=== PATIENT | male | born 1945 | race Caucasian/White ===

== ENCOUNTER 2021-07-16 12:19 | Emergency (ER) | payer MEDICARE ==
[2021-07-16] MEDS ORDERED: ALBUTEROL HFA INHALER INHALATION STA (12:58)
[2021-07-16] MEDS ORDERED: DEXAMETHASONE SOD PHOSPHATE 10 MG/ML 1 ML VIAL IM STA (12:58)
--- NOTE | 2021-07-16 13:05 | ED ---
URI HPI - General Chief Complaint: Upper Respiratory Infection Stated Complaint: Covid+, SOB Time Seen by Provider: 07/16/21 12:36 Source: patient, family, RN notes reviewed Mode of arrival: ambulatory Limitations: no limitations - History of Present Illness Initial Comments: Patient is a 75-year-old male that presents to the emergency Department Covid- positive recently receiving were general on on 07/13/2021. He notes that he still having muscle aches. Patient was informed that were general does not take symptoms away and he is most likely just experiencing continuation of symptoms. Patient was otherwise well-appearing in no apparent distress or pain. He denied any chest pain short of breath headache nausea vomiting diarrhea constipation fe marc fatigue chills. - Related Data Previous Rx's Medication Instructions Recorded Albuterol Sulfate [Albuterol 2 puff PO Q6H #8.5 gm 07/16/21 Sulfate Hfa] predniSONE 50 mg PO DAILY #5 tab 07/16/21 Allergies Allergy/AdvReac Type Severity Reaction Status Date / Time No Known Allergies Allergy Verified 07/16/21 12:33 Review of Systems ROS Statement: Those systems with pertinent positive or pertinent negative responses have been documented in the HPI. ROS Other: All systems not noted in ROS Statement are negative. Past Medical History Additional Past Medical History / Comment(s): parkinson's History of Any Multi-Drug Resistant Organisms: None Reported Past Surgical History: Orthopedic Surgery Additional Past Surgical History / Comment(s): hip surgery Past Psychological History: No Psychological Hx Reported Smoking Status: Never smoker Past Alcohol Use History: None Reported Past Drug Use History: None Reported General Exam Limitations: no limitations General appearance: alert, in no apparent distress, obese Head exam: Present: atraumatic, normocephalic, normal inspection Eye exam: Present: normal appearance, PERRL, EOMI. Absent: scleral icterus, conjunctival injection, periorbital swelling ENT exam: Present: normal exam, mucous membranes moist Neck exam: Present: normal inspection Respiratory exam: Present: normal lung sounds bilaterally. Absent: respiratory distress, wheezes, rales, rhonchi, stridor Cardiovascular Exam: Present: regular rate, normal rhythm, normal heart sounds. Absent: systolic murmur, diastolic murmur, rubs, gallop, clicks Extremities exam: Present: normal inspection, full ROM, normal capillary refill. Absent: tenderness, pedal edema, joint swelling, calf tenderness Neurological exam: Present: alert, oriented X3 Psychiatric exam: Present: normal affect, normal mood Skin exam: Present: warm, dry, intact, normal color. Absent: rash Course Vital Signs 07/16/21 12:28 Temperature 97.5 F L Pulse Rate 79 Respiratory 18 Rate Blood Pressure 143/83 O2 Sat by Pulse 95 Oximetry Medical Decision Making - Medical Decision Making 75-year-old male Covid-positive are he received regeneron. 10 mg of Decadron, 2 puffs of an inhaler ordered. Patient was informed that the monoclonal antibody does not take symptoms away and just reduces severity. Patient was informed that his muscle aches are probably a continuation of his Covid symptoms. Patient is agreeable with discharge home. Case discussed with Dr. Panchal Disposition Clinical Impression: COVID Disposition: HOME SELF-CARE Condition: Stable Instructions (If sedation given, give patient instructions): Coronavirus Disease 2019 (COVID-19) Additional Instructions: Please return to the Emergency Department if symptoms worsen or any other concerns. Follow-up with primary care in 1-2 days. Takes steroid and inhaler as prescribed. Is patient prescribed a controlled substance at d/c from ED?: No Referrals: Errol Hu MD [Primary Care Provider] - 1-2 days Time of Disposition: 13:05
[2021-07-16 14:08] VITALS: BP 131/72; PULSE 77; RESP 18; TEMP 98
== END 2021-07-16 14:40 | disposition home or self-care (01) ==
LOC: EC 12:19
DX: U07.1 COVID-19 (principal); E66.9 Obesity, unspecified; Z68.36 Body mass index [BMI] 36.0-36.9, adult
CPT/HCPCS: 94640; 96372; 99283; J1100

== ENCOUNTER → 2024-09-12 | Outpatient (CLI) | payer MEDICARE | END | disposition home or self-care (01) | LOC: LABPAT 14:15 | PROVIDERS: ATTEND Orthopaedic Surgery | DX: Z22.322 Carrier or suspected carrier of Methicillin resistant Staphylococcus aureus (principal) | CPT/HCPCS: 87070; 93005 ==

== ENCOUNTER 2024-09-16 05:37 | Day surgery (SDC) | payer MEDICARE ==
[~2024-09-16 05:37] MED LIST: TRANEXAMIC 1,000 MG/100ML-NACL 1,000 MG in SALINE 1 100ML.BAG IVPB PRN
[2024-09-16] MEDS: ACETAMINOPHEN TAB 500 MG TAB PO PRN (06:24)
[2024-09-16] MEDS: MELOXICAM 7.5 MG TAB PO PRN (06:24)
[2024-09-16] MEDS: GABAPENTIN 300 MG CAP PO PRN (06:25)
[2024-09-16] MEDS: MIDAZOLAM 2 MG/2 ML VIAL IV ONE (06:30)
[2024-09-16] MEDS: DEXAMETHASONE SOD PHOSPHATE 4 MG/ML 1 ML VIAL IVP STA (06:44)
[2024-09-16] MEDS: ONDANSETRON 4 MG/2 ML VIAL IVP STA (06:44)
[2024-09-16] MEDS: LACTATED RINGERS 1,000 ML IV SCH (06:46)
[2024-09-16 06:55] LABS: Glucose,Whole Blood 105 mg/dL (70-110)
[2024-09-16] MEDS: ceFAZolin 1,000 MG in SODIUM CHLORIDE 0.9% 1,000 ML IRRIGATION ONE (06:56)
[2024-09-16] MEDS ORDERED: ROPIVACAINE 5 MG/ML 30 ML VIAL ONE (06:56)
[2024-09-16] MEDS ORDERED: fentaNYL (PF) 50 MCG/ML 2 ML AMP ONE (06:56)
[2024-09-16] MEDS ORDERED: MIDAZOLAM 2 MG/2 ML VIAL ONE (06:56)
[2024-09-16] MEDS ORDERED: DEXAMETHASONE SOD PHOSPHATE 4 MG/ML 1 ML VIAL ONE (06:56)
[2024-09-16] MEDS ORDERED: TRANEXAMIC 1,000 MG/100ML-NACL PREMIX BAG ONE (06:56)
[2024-09-16] MEDS ORDERED: PROPOFOL 10 MG/ML 20 ML VIAL IV ONE (06:56)
[2024-09-16] MEDS: IV FLUID CONTINUATION 1,000 ML IV ONE ×2 (06:57→08:31)
[2024-09-16] MEDS ORDERED: HYDROmorphone 0.5 MG/0.5 ML SYRINGE IVP PRN ×4 (07:00→08:38)
--- NOTE | 2024-09-16 08:01 | P.OP ---
Date of Procedure: 09/16/24 Preoperative Diagnosis: Severe osteoarthritis left knee Postoperative Diagnosis: Severe osteoarthritis left knee Procedure(s) Performed: Left total knee arthroplasty Implants: [employer] II CR Oxinium cruciate retaining femoral component size 7, left [employer] nonporous tibial baseplate size 6, left [employer] II, XLPE Deep Dished articular insert, size 11 mm, Size 5-6, left [employer] Priscilla II resurfacing patellar component, oval, 35 mm All components were cemented using Palacos R bone cement The articulation is Oxinium on polyethylene Anesthesia: spinal Surgeon: Jayden Berry Electrical Design Technician #1: Shira Gupta Estimated Blood Loss (ml): 30 Pathology: none sent Condition: stable Disposition: PACU Indications for Procedure: The patient's knee is end-stage, and conservative management has failed. The operation of knee replacement has been discussed at length in the office, as well as potential risks and complications. These are inclusive of, but not limited to: Infection, bleeding, scarring, discomfort, stiffness, blood vessel and nerve damage, need for further surgery, failure to relieve symptoms, persistence, recurrence, or worsening of problems, loosening, dislocation, wear, blood clot, pulmonary embolism, , gait dysfunction, stiffness, and other risks as discussed in the office. Patient elects to proceed and the consent form has been signed. Operative Findings: The operative findings are consistent with severe osteoarthritis of the left knee Description of Procedure: The patient was seen in the preoperative area, the consent was reviewed and the operative site was marked with a skin marker. The patient verified the procedure and the operative site. An adductor canal pain catheter and an iPACK block were placed by anesthesia in the preoperative area. The patient was then brought to the operating room and positioned on the operating room table in the supine position. Preoperative antibiotics and a gram of tranexamic acid were given intravenously. A spinal anesthetic was administered by the anesthesia department. Care was taken to make sure that all pressure points were adequately padded. A tourniquet was placed on the upper thigh and the lower extremity was prepped with ChloraPrep and draped in usual sterile fashion. A universal time-out was then performed which confirmed the patient's name, surgical site, ALLERGIES, and consent. The lower extremity was then exsanguinated and tourniquet was inflated to 250 mmHg. A standard anterior midline approach to the knee was performed. The skin and subcutaneous tissue were sharply dissected down to the patellar tendon. A medial parapatellar arthrotomy was then performed. The knee was then extended, the patellar was everted, and the knee was flexed. The infra-patellar fat pad was removed in order to enhance exposure. The anterior horns of both menisci were excised, and a release was performed to the posterior medial aspect of the knee. On gross visual inspection, there was complete loss of articular cartilage in the medial and patellofemoral joint spaces. There was also significant cartilage damage in the lateral compartment. There were multiple periarticular osteophytes globally about the knee which were then removed with a Ronguer. The femoral canal was then opened with the 9.5 mm intramedullary drill. The 8 mm intramedullary miquel was then inserted into the femoral canal with the distal femoral cutting guide set for 5 of valgus. The distal femoral cutting block was then pinned in place. The intramedullary miquel was then removed, and the distal femur was then cut. The cutting block was then removed and the cut was checked for symmetry. The resected bone was then measured to confirm the appropriate distal femoral resection. Next, the sizing guide was then placed and set for 3 external rotation based off of the epicondylar axis and [place]'s line. Pins were then placed and the drill holes, and the femur was sized with the sizing stylus. The pins were then removed, and the sizing guide was then removed. The spikes of the appropriate size femoral block was then placed into the predrilled holes, and malleted into place. Two 45 mm pins were then placed into the fixation holes on the cutting block. An skylar wing was then used to ensure there would be no notching with the anterior cut. The anterior condyles were cut without notching. The anterior chord cut was then performed, followed by the posterior cut, posterior chamfer cut, and the anterior chamfer cut. The collateral ligaments were protected during the entire process. The cutting block was then removed. Any remaining bone and osteophytes were removed from the femur with a Ronguer. Attention was then directed to the tibia. The remaining ACL was removed with a Ronguer, and the tibia was then gently subluxed forward with a large bent knee retractor. Any remaining menisci were excised. The posterior lateral corner was cauterized in order to coagulate the lateral geniculate artery. The extra medullary tibial cutting guide was then placed, set for the appropriate rotation, slope, and depth of resection. The proximal tibia cutting guide was then pinned in place. Proximal tibia was then cut and sized. A curved osteotome was then used to remove any posterior osteophytes from the distal femur. The femoral trial was placed. A narrow saw blade was then used to remove the anterior intracondylar femoral bone. The CR notch trial was then placed. The tibial trial was placed with the appropriate-sized insert. The knee was able to fully extend and flex to 130 and was stable throughout all range of motion. The knee was then extended and the patella was everted. Patella was then measured, and then using an osteotomy guide, the patella was cut at the appropriate level. The patellar component was sized. The patellar drill guide was placed and the patella was drilled. The patella trial was then placed. The knee was then taken through range of motion with the patella trial and the patella tracked normally using the no thumbs technique. The patella trial was then removed. The knee was then flexed and lug holes were drilled through the femoral trial and the femoral trial was then removed. The tibial was then re- exposed, and the tibial broach guide was then pinned in place after it was set for the appropriate rotation to allow for the most coverage without overhang. The tibia was then reamed and broached. The femoral canal was plugged with autologous bone. The cut surfaces of bone were then irrigated with pulsatile lavage. The knee was also irrigated with Irrisept solution. The components were then opened, the cement was mixed. Cement was placed on the backside of the femoral, tibial, and patellar components. Cement was then applied to the tibial surface and pressurized into the surface using finger pressurization technique. The tibial component was then applied and excess cement was removed after it was impacted securely noted to be flush with the cut surface. In similar fashion, the cement was applied to the cut femoral surface, pressur ized and using finger pressurization the component was impacted in place. Excess cement was removed. The polyethylene spacer was then implanted and locked into position. Patellar component was then applied in a similar technique and the patellar clamp was used to hold patella in place while the cement hardened. The knee was held in full extension while the cement hardened. Once the cement had fully hardened, the knee was reinspected. Any other cement extrusion was removed the final range of motion testing showed range of motion from 0-130 with excellent stability, both medial and laterally and appropriate alignment of the leg. Patella tracked normally. After the cemented hardened, the tourniquet was released and hemostasis was obtained. A second gram of transexamic acid was given intravenously. The knee was again irrigated. The knee was again taken through range of motion and found to be stable throughout all range of motion of 0-130, and the patella tracked normally. The fascia was then closed with 0 Vicryl followed by #2 strata fix suture. The subcutaneous tissue was closed with 3-0 Vicryl and 3-0 monocryl. Exofin glue was used for the skin and placed with the knee in flexion. After the glue had dried, and Optafoam silver impregnated dressing was applied. A lightly compressive dressing was applied using web roll and Cecilio wrap. Patient was then transferred to the stretcher and taken to recovery room in stable condition. Sponge and needle counts were correct. The quality assistant HANNAH Gunderson was required due the complexity surgery and the need for a skilled surgical processor. She assisted in positioning, draping, retraction, and closure of the wound.
[2024-09-16] MEDS: LACTATED RINGERS 1,000 ML IV ONE (08:08)
[2024-09-16] MEDS ORDERED: bisacodyL 10 MG SUPP RECTAL PRN (08:38)
[2024-09-16] MEDS ORDERED: MAGNESIUM HYDROXIDE 2,400 MG/30 ML CUP PO PRN (08:38)
[2024-09-16] MEDS ORDERED: NA PHOS,M-B/NA PHOS,DI-BA 133 ML ENEMA RECTAL PRN (08:38)
[2024-09-16] MEDS ORDERED: NALOXONE 0.4 MG/ML 1 ML VIAL IV PRN (08:38)
[2024-09-16] MEDS ORDERED: ONDANSETRON 4 MG/2 ML VIAL IVP PRN (08:38)
[2024-09-16] MEDS ORDERED: ROPIVACAINE 1,100 MG, SODIUM CHLORIDE 0.9% 500 ML 330 ML, EMPTY PAIN BALL 1 EACH MISCELLANE PRN (08:50)
--- NOTE | 2024-09-16 09:07 | XR ---
EXAMINATION TYPE: XR knee limited LT DATE OF EXAM: 09/16/2024 9:03 AM INDICATION: Patient age:Male; 78 years old; Reason for study: Evaluation for Postop abnormality and alignment; [facility]. COMPARISON: None. TECHNIQUE: The Left knee(s) was examined in frontal and lateral projections. FINDINGS: Status post total knee arthroplasty changes with hardware in appropriate alignment and in tact. No evidence of fracture. Subcutaneous lucencies and lucencies within the joint consistent with surgical changes. Vascular sclerosis. IMPRESSION: Status post total knee arthroplasty changes with hardware intact and appropriate alignment. No fractu res identified. [facility], , 09/16/2024 9:05 AM
--- NOTE | 2024-09-16 10:38 | P.ANPRN ---
Procedure Note - Anesthesia - Nerve Block Performed Left Adductor Canal Infusion Time Out Performed: Yes Date of Procedure: 09/16/24 Procedure Start Time: Procedure Stop Time: : Location of Patient: PreOp Indication: Acute Post-Operative Pain, Requested by Surgeon Sedation Type: Sedate with meaningful contact maintained Preparation: Sterile Prep, Sterile Dressing Position: Supine Catheter: Indwelling Needle Types: Pajunk Needle Gauge: 21 Ultrasound used to visualize needle placement: Yes Ultrasound used to observe medication spread: Yes Blood Aspirated: No Pain Paresthesia on Injection Noted: No Resistance on Injection: Normal Image Stored and Saved: Yes Events: Uneventful and Well Tolerated (Ropivacaine 0.5% 20 cc plus dexamethasone 4 mg)
--- NOTE | 2024-09-16 10:39 | P.ANPRN ---
Procedure Note - Anesthesia - Nerve Block Performed Left iPack Single Time Out Performed: Yes Date of Procedure: 09/16/24 Procedure Start Time: 06: Procedure Stop Time: 06:43 Location of Patient: PreOp Indication: Acute Post-Operative Pain, Requested by Surgeon Sedation Type: Sedate with meaningful contact maintained Preparation: Sterile Prep Position: Supine Needle Types: Pajunk Needle Gauge: 21 Ultrasound used to visualize needle placement: Yes Ultrasound used to observe medication spread: Yes Blood Aspirated: No Pain Paresthesia on Injection Noted: No Resistance on Injection: Normal Image Stored and Saved: Yes Events: Uneventful and Well Tolerated (Ropivacaine 0.5% 20 cc plus dexamethasone 4 mg)
[2024-09-16] MEDS: SODIUM CHLORIDE 0.9% 1,000 ML IV SCH (12:56)
[2024-09-16] MEDS: ASPIRIN 325 MG TAB PO SCH (12:57)
[2024-09-16] MEDS: HYDROcodone/APAP 7.5-325MG 1 EACH TAB PO PRN (13:00)
[2024-09-16] MEDS ORDERED: DEXTROSE 50% SYRINGE 50 ML IVP PRN ×2 (13:38)
[2024-09-16 16:43] LABS: Glucose,Whole Blood 178 mg/dL (70-110)
[2024-09-16] MEDS: INSULIN ASPART (NovoLOG) 100 UNIT/ML VIAL SQ SCH (17:45)
[2024-09-16] MEDS: TOPIRAMATE 100 MG TAB PO SCH (20:34)
[2024-09-16] MEDS: TRIHEXYPHENIDYL 2 MG TAB PO SCH (20:34)
[2024-09-16] MEDS: metFORMIN 500 MG TAB PO SCH (20:34)
[2024-09-16] MEDS: SENNOSIDES-DOCUSATE SODIUM 1 EACH TAB PO SCH (20:34)
[2024-09-16 20:53] LABS: Glucose,Whole Blood 121 mg/dL (70-110)
[2024-09-17 02:22] VITALS: RESP 16
--- NOTE | 2024-09-17 03:12 | CONS ---
CONSULTATION REASON FOR CONSULTATION: Advice regarding diabetes and other medical issues, requested by Orthopedics. HISTORY OF PRESENT ILLNESS: This 78-year-old gentleman with a past history of diabetes, hypertension, hyperlipidemia, underwent left total knee arthroplasty for severe DJD. There is no history of fever, rigors, or chills at this time. Sugars are 105. PAST MEDICAL HISTORY: Diabetes mellitus, hypertension, and hyperlipidemia. Rest of the history and rest of the chart is also reviewed. HOME MEDICATIONS: Reviewed include Cozaar. Dose and rest of medications reviewed. ALLERGIES: None. FAMILY HISTORY: No history of heart disease or strokes in the family. SOCIAL HISTORY: Previous smoker. REVIEW OF SYSTEMS: Fourteen-point review of systems negative except as mentioned earlier. PHYSICAL EXAMINATION: VITAL SIGNS: Pulse is 68, blood pressure 140/78, and respirations 16. HEENT: Conjunctivae normal. NECK: No JVD. CARDIOVASCULAR: S1, S2. RESPIRATIONS: Breath sounds diminished at the bases. ABDOMEN: Soft and nontender. NERVOUS SYSTEM: Nonfocal. LEGS: Status post left knee arthroplasty. LABORATORY DATA: Glucose 105. ASSESSMENT: 1. Status post left knee arthroplasty. 2. Diabetes mellitus, type 2. 3. Hypertension. 4. Hyperlipidemia. 5. History of Parkinson's. RECOMMENDATIONS AND DISCUSSION: This is a 78-year-old gentleman, presented after surgery. At this time, I would recommend to continue the current home medications. Monitor Accu-Cheks closely. DVT prophylaxis. We will follow the patient closely. The patient may be asked to follow up with primary physician in the outpatient setting. See orders for details. Home medications ordered. MMODL / IJN: [id number] /
[2024-09-17 06:10] LABS: Glucose,Whole Blood 95 mg/dL (70-110)
[2024-09-17] MEDS: HYDROcodone/APAP 7.5-325MG 1 EACH TAB PO PRN (06:56)
[2024-09-17 07:52] VITALS: BP 138/82; PULSE 62; TEMP 98
[2024-09-17] MEDS: LOSARTAN 25 MG TAB PO SCH (08:37)
[2024-09-17] MEDS: hydroCHLOROthiazide 12.5 MG CAP PO SCH (08:37)
[2024-09-17] MEDS: PRAVASTATIN SODIUM 20 MG TAB PO SCH (08:37)
[2024-09-17 08:55] LABS: HCT 43.9 % (39.6-50.0); MCHC 31.9 g/dL (32.0-37.0); Mean Platelet Volume 11.9 FL (9.5-12.2); NRBC Per 100 WBC 0 X 10*3/uL (0.00-0.01); Platelet Count 257 X 10*3/uL (140-440); RBC 4.67 X 10*6/uL (4.40-5.60); RDW 13.1 % (11.5-14.5)
[2024-09-17 09:50] LABS: Basophils # (A) 0.02 X 10*3/uL (0.00-0.10); Basophils % (A) 0.1 %; Eosinophils # (A) 0.01 X 10*3/uL (0.04-0.35); Eosinophils % (A) 0.1 %; Lymphocytes # (A) 1.14 X 10*3/uL (0.90-5.00); Lymphocytes % (A) 8.5 %; Monocytes % (A) 12.7 %; Neutrophils # (A) 10.45 X 10*3/uL (1.80-7.70)
[2024-09-17 09:51] LABS: RBC Morphology Normal (Normal)
--- NOTE | 2024-09-17 10:24 | P.DS ---
Providers Expected date of discharge: 09/17/24 Attending physician: Jayden Berry Consults: 09/16/24 08:38 Consult Physician Routine Consulting Provider: Adia Lua Consult Reason/Comments: medical management Do you want consulting provider notified?: Yes [facility] Discharge Diagnosis(es) (1) Osteoarthritis of left knee Current Visit: Yes Status: Acute (2) Status post total left knee replacement Current Visit: Yes Status: Acute Hospital Course: This is a 78-year-old male with known history of degenerative arthritis of the left knee. The patient presented for evaluation as an outpatient. After discussion and consideration patient elects to proceed with total knee arthroplasty. The patient is seen preoperatively by Dr. Berry and medically cleared for surgery by their primary care physician. Patient is admitted to [facility] on 09/16/2024 for total knee arthroplasty. The procedure is performed without complication or sequelae. The patient is doing well postoperatively. Labs and vital signs are stable on day of discharge. On day of discharge patient's knee incision is healing well. There is minimal erythema. There is no drainage noted at this time. There is minimal soft tissue swelling to the knee. Patient has full foot and ankle motion without difficulty or pain. Calf is soft and nontender to palpation. Neurovascular status to the left lower extremity is intact. Patient is discharged home in good condition. Please see med rec for accurate list of home medications. Plan - Discharge Summary Discharge Rx Participant: No New Discharge Prescriptions: New HYDROcodone/APAP 7.5-325MG [[place] 7.5-325] 1 - 2 tab PO Q6H PRN #32 tab PRN Reason: Pain Aspirin 325 mg PO BID #60 tab Sennosides [Senokot] 2 tab PO DAILY PRN #60 tablet PRN Reason: Constipation No Action metFORMIN HCL [Glucophage] 500 mg PO BID Trihexyphenidyl [Artane] 2 mg PO BID Meloxicam [Mobic] 15 mg PO DAILY hydroCHLOROthiazide 12.5 mg PO DAILY Pravastatin Sodium [Pravachol] 20 mg PO DAILY Topiramate [Topiramate ER] 100 mg PO BID Losartan [Cozaar] 25 mg PO DAILY Aspirin [Adult Low Dose Aspirin EC] 81 mg PO DAILY Discharge Medication List Aspirin [Adult Low Dose Aspirin EC] 81 mg PO DAILY 09/11/24 [History] Losartan [Cozaar] 25 mg PO DAILY 09/11/24 [History] Meloxicam [Mobic] 15 mg PO DAILY 09/11/24 [History] Pravastatin Sodium [Pravachol] 20 mg PO DAILY 09/11/24 [History] Topiramate [Topiramate ER] 100 mg PO BID 09/11/24 [History] Trihexyphenidyl [Artane] 2 mg PO BID 09/11/24 [History] hydroCHLOROthiazide 12.5 mg PO DAILY 09/11/24 [History] metFORMIN HCL [Glucophage] 500 mg PO BID 09/11/24 [History] Aspirin 325 mg PO BID #60 tab 09/16/24 [Rx] HYDROcodone/APAP 7.5-325MG [[place] 7.5-325] 1 - 2 tab PO Q6H PRN #32 tab 09/16/24 [Rx] Sennosides [Senokot] 2 tab PO DAILY PRN #60 tablet 09/16/24 [Rx] Follow up Appointment(s)/Referral(s): [facility] [[facility]] - 1-2 Days ([facility] will call you to schedule your in home physical therapy visits. ) Jayden Berry DO [Doctor of Osteopathic Medicine] - 2 Weeks Patient Instructions/Handouts: *Surgery [facility] - On-Q Pain Pump Discharge Instructions, Knee Arthroscopy (DC), Knee Arthroscopy (GEN) Activity/Diet/Wound Care/Special Instructions: Weightbearing as tolerated with a walker. Leave dressing intact. Dressing may be removed by home care nurse or by patient in 7 days. Then change dressing twice daily until follow up. May shower with initial dressing intact and after removal. If dressing become saturated, please remove. Recommend use of compression stockings daily until follow up to help prevent swelling and blood clots. May remove at night before sleeping. Please take aspirin 325mg twice daily for 30 days to prevent blood clots. [facility] with [facility] and call with any questions or concerns, . Discharge Disposition: HOME WITH HOME HEALTH SERVICES
--- NOTE | 2024-09-17 11:36 | P.PN ---
Progress Note - Text 09/17/24 644am 78-year-old male status post total knee replacement. Patient has an On-Q pump for postop pain control with a solution running at 8 cc an hour with a VAS of 4. Plan to continue On-Q pump infusion
== END 2024-09-17 11:39 | disposition home health service (06) ==
LOC: OR 05:37 → 4SSUR 08:26 → OR 09-17 11:39
PROVIDERS: ATTEND Orthopaedic Surgery
DX: M17.12 Unilateral primary osteoarthritis, left knee (principal); G89.18 Other acute postprocedural pain; E78.5 Hyperlipidemia, unspecified; I10 Essential (primary) hypertension; Z87.891 Personal history of nicotine dependence; E11.9 Type 2 diabetes mellitus without complications; G20.A1 Parkinson's disease without dyskinesia, without mention of fluctuations; Z79.82 Long term (current) use of aspirin; Z79.84 Long term (current) use of oral hypoglycemic drugs
CPT/HCPCS: 27447; 97161; 64999; 64448; 85025; 83036; 73560; C1713; C1776; C1751; J2250; J1100; J0690 ×2; J2405